=== PATIENT | female | born 1960 | race Two or more races ===

== ENCOUNTER 2017-08-25 05:30 | Inpatient (IN) | payer OTHER ==
[~2017-08-25] VITALS: Ht 162.6 cm; Wt 350.0 kg
[~2017-08-25 05:30] MED LIST: DIOVAN HCT 1601 EACH PO; REQUIP XL2 MG PO
[2017-08-26] MEDS ORDERED: PERCOCET 5-3251 EACH PO (10:10)
[2017-08-26] MEDS ORDERED: MIRALAX17 GM PO (10:10)
== END 2017-08-26 14:11 | disposition home or self-care (01) | DRG 419 ==
LOC: CIR.AMB 05:30 → O/R 15:08 → SURH 15:54
PROVIDERS: Surgery
PROC: BF13YZZ Fluoroscopy of Gallbladder and Bile Ducts using Other Contrast (ICD-10-PCS; 2017-08-25)
PROC: 3E0F7GC Introduction of Other Therapeutic Substance into Respiratory Tract, Via Natural or Artificial Opening (ICD-10-PCS; 2017-08-25)
PROC: 0FT44ZZ Resection of Gallbladder, Percutaneous Endoscopic Approach (ICD-10-PCS; principal; 2017-08-25 07:00)
DX: K80.10 Calculus of gallbladder with chronic cholecystitis without obstruction (principal); E66.01 Morbid (severe) obesity due to excess calories; G47.33 Obstructive sleep apnea (adult) (pediatric); I11.9 Hypertensive heart disease without heart failure; J45.20 Mild intermittent asthma, uncomplicated; G25.81 Restless legs syndrome

== ENCOUNTER 2018-06-07 14:05 | Outpatient (CLI) | payer OTHER ==
[~2018-06-07 14:05] MED LIST changes: +MIRALAX17 GM PO; +PERCOCET 5-3251 EACH PO
[2018-06-09] MEDS ORDERED: ATACAND16 MG (16:30)
[2018-06-09] MEDS ORDERED: CANDESARTAN-HC1 EACH (16:31)
== END 2018-06-07 17:10 | disposition home or self-care (01) ==
LOC: RAD 14:05
DX: C73 Malignant neoplasm of thyroid gland (principal)

== ENCOUNTER → 2018-06-08 09:17 | Outpatient (CLI) | payer OTHER ==
[~2018-06-08 09:17] MED LIST changes: +ATACAND16 MG; +CANDESARTAN-HC1 EACH
== END | disposition home or self-care (01) ==
LOC: LAB 09:17
DX: C73 Malignant neoplasm of thyroid gland (principal); E61.1 Iron deficiency; E55.9 Vitamin D deficiency, unspecified; D52.0 Dietary folate deficiency anemia

== ENCOUNTER → 2018-06-15 | Day surgery (SDC) | payer OTHER | END | disposition home or self-care (01) | LOC: ADM 06-13 13:00 → CIR.AMB 05:51 | DX: C73 Malignant neoplasm of thyroid gland (principal) ==